=== PATIENT | female | born 1950 | race Caucasian/White ===

== ENCOUNTER 2021-08-10 10:45 | Emergency (ER) | payer MEDICARE, BC ==
[2021-08-10] MEDS ORDERED: Ondansetron 4 MG Tab.DIS PO ONE (10:53)
--- NOTE | 2021-08-10 10:54 | EDM.PDOC ---
ED HPI GENERAL MEDICAL PROBLEM - General Chief Complaint: General Stated Complaint: nausea, vomiting, chills, headache Time Seen by Provider: 08/10/21 10:52 - History of Present Illness INITIAL COMMENTS - FREE TEXT/NARRATIVE: Headache/chills/vomiting this morning. [place] fine last night. Denies other acute changes. not ill. Hx migraine headaches. Has not had one for a long time. No aura. Usually develops vomiting with migraines. - Related Data Allergies Allergy/AdvReac Type Severity Reaction Status Date / Time dexamethasone Allergy Other Verified 08/10/21 10:47 Home Meds: Home Meds Ondansetron [Zofran ODT] 4 mg PO Q6H PRN #10 tab.dis 08/10/21 [Rx] Past Medical History Neurological History: Reports: Migraines ED ROS GENERAL - Review of Systems Review Of Systems: See Below Constitutional: Reports: Chills. Denies: Fever, Weakness, Fatigue, Night Sweats, Diaphoresis, Decreased Appetite HEENT: Reports: No Symptoms Respiratory: Reports: No Symptoms Cardiovascular: Reports: No Symptoms GI/Abdominal: Reports: Nausea, Vomiting. Denies: Abdominal Pain, Diarrhea, Hematemesis, Hematochezia : Reports: No Symptoms Musculoskeletal: Reports: Muscle Pain (with palpation) Skin: Reports: No Symptoms Neurological: Reports: Headache. Denies: Paresthesia, Tingling, Trouble Speaking, Weakness, Change in Speech, Gait Disturbance Psychiatric: Reports: No Symptoms Hematologic/Lymphatic: Reports: No Symptoms Immunologic: Reports: No Symptoms ED EXAM, GENERAL - Physical Exam Exam: See Below Exam Limited By: No Limitations General Appearance: Alert, WD/WN, No Apparent Distress Eye Exam: Bilateral Eye: EOMI, PERRL Ears: Normal External Exam, Normal Canal, Hearing Grossly Normal Nose: No: Nasal Deformity, Nasal Swelling, Nasal Drainage Throat/Mouth: Normal Lips, Normal Oropharynx, Normal Voice, No Airway Compromise Head: Atraumatic, Normocephalic Neck: Normal Inspection, Supple, Non-Tender, Full Range of Motion Respiratory/Chest: No Respiratory Distress, Lungs Clear, Normal Breath Sounds, No Accessory Muscle Use Cardiovascular: Normal Peripheral Pulses, Regular Rate, Rhythm, No Edema, No Murmur GI/Abdominal: Normal Bowel Sounds, Soft, Non-Tender, No Distention (Female) Exam: Deferred Rectal (Female) Exam: Deferred Back Exam: No: CVA Tenderness (L), CVA Tenderness (R), Muscle Spasm, Paraspinal Tenderness, Vertebral Tenderness Extremities: Normal Range of Motion, No Pedal Edema, Normal Capillary Refill, Other (diffuse tenderness muscles limbs) Neurological: Alert, Oriented, CN II-XII Intact, Normal Cognition, Normal Gait, No Motor/Sensory Deficits Psychiatric: Normal Affect, Normal Mood Skin Exam: Warm, Intact, Normal Color Course - Orders/Labs/Meds Orders: Active Orders 24 hr Category Date Time Status Peripheral IV Care [RC] . DIRECTED Care 08/10/21 11:34 Active Abdomen Series w Chest 1V [CR] Stat Exams 08/10/21 10:53 Taken Head wo Cont [CT] Stat Exams 08/10/21 11:40 Taken UA RFX DEIRDRE AND CULT IF INDIC [URIN] Stat Lab 08/10/21 10:53 Ordered Sodium Chloride 0.9% [Saline Flush] Med 08/10/21 11:34 Active 10 ml FLUSH ASDIRECTED PRN Peripheral IV Insertion Adult [OM.PC] Routine Oth 08/10/21 11:34 Ordered Medication Orders Sodium Chloride (Sodium Chloride 0.9% 10 Ml Syringe) 10 ml FLUSH ASDIRECTED PRN PRN Reason: Keep Vein Open Labs: Laboratory Tests 08/10/21 08/10/21 08/10/21 Range/Units 11:14 11:14 11:14 WBC 7.1 (4.0-10.2) K/uL RBC 4.58 (3.77-5.09) M/uL Hgb 13.0 (11.7-15.5) g/dL Hct 39.1 (34.0-46.0) % MCV 85.4 (84.0-98.0) fL MCH 28.4 (28.2-33.3) pg MCHC 33.2 (31.7-36.0) g/dL RDW 13.8 (11.2-14.1) % Plt Count 196 (150-350) K/uL Neut % (Auto) 85.0 H (45.0-80.0) % Lymph % (Auto) 10.4 (10.0-50.0) % Knox % (Auto) 4.5 (2.0-14.0) % Eos % (Auto) 0.0 (0.0-5.0) % Baso % (Auto) 0.1 (0.0-2.0) % Neut # (Auto) 6.04 (1.40-7.00) K/uL Lymph # (Auto) 0.74 (0.50-3.50) K/uL Knox # (Auto) 0.32 (0.00-1.00) K/uL Eos # (Auto) 0.00 (0.00-0.50) K/uL Baso # (Auto) 0.01 (0.00-0.20) K/uL D-Dimer, Quantitative (0-400) ng/mL Sodium 140 (136-145) mmol/L Potassium 3.8 (3.5-5.1) mmol/L Chloride 104 (98-107) mmol/L Carbon Dioxide 23.5 (21.0-32.0) mmol/L Anion Gap 12.5 (7-15) meq/L BUN 16 (7-18) mg/dL Creatinine 0.70 (0.51-1.17) mg/dL Est Cr Clr Drug Dosing TNP Estimated GFR (MDRD) > 60 mL/min Glucose 131 H (70-99) mg/dL Lactic Acid 1.1 (0.4-2.0) mmol/L Calcium 9.1 (8.5-10.1) mg/dL Magnesium 1.7 L (1.8-2.4) mg/dL Total Bilirubin 0.5 (0.2-1.0) mg/dL AST 18 (15-37) U/L ALT 35 (12-78) U/L Alkaline Phosphatase 73 (46-116) IU/L Total Protein 6.5 (6.4-8.2) g/dL Albumin 4.0 (3.4-5.0) g/dL Influenza Type A RNA (NEGATIVE) RSV RNA (INAAT) (NEGATIVE) Influenza Type B RNA (NEGATIVE) SARS-CoV-2 RNA ([place]ONA) (NEGATIVE) 08/10/21 08/10/21 Range/Units 11:14 11:14 WBC (4.0-10.2) K/uL RBC (3.77-5.09) M/uL Hgb (11.7-15.5) g/dL Hct (34.0-46.0) % MCV (84.0-98.0) fL MCH (28.2-33.3) pg MCHC (31.7-36.0) g/dL RDW (11.2-14.1) % Plt Count (150-350) K/uL Neut % (Auto) (45.0-80.0) % Lymph % (Auto) (10.0-50.0) % Knox % (Auto) (2.0-14.0) % Eos % (Auto) (0.0-5.0) % Baso % (Auto) (0.0-2.0) % Neut # (Auto) (1.40-7.00) K/uL Lymph # (Auto) (0.50-3.50) K/uL Knox # (Auto) (0.00-1.00) K/uL Eos # (Auto) (0.00-0.50) K/uL Baso # (Auto) (0.00-0.20) K/uL D-Dimer, Quantitative < 100 (0-400) ng/mL Sodium (136-145) mmol/L Potassium (3.5-5.1) mmol/L Chloride (98-107) mmol/L Carbon Dioxide (21.0-32.0) mmol/L Anion Gap (7-15) meq/L BUN (7-18) mg/dL Creatinine (0.51-1.17) mg/dL Est Cr Clr Drug Dosing Estimated GFR (MDRD) mL/min Glucose (70-99) mg/dL Lactic Acid (0.4-2.0) mmol/L Calcium (8.5-10.1) mg/dL Magnesium (1.8-2.4) mg/dL Total Bilirubin (0.2-1.0) mg/dL AST (15-37) U/L ALT (12-78) U/L Alkaline Phosphatase (46-116) IU/L Total Protein (6.4-8.2) g/dL Albumin (3.4-5.0) g/dL Influenza Type A RNA Negative (NEGATIVE) RSV RNA (INAAT) Negative (NEGATIVE) Influenza Type B RNA Negative (NEGATIVE) SARS-CoV-2 RNA ([place]ONA) Negative (NEGATIVE) Meds: Medications Generic Name Dose Route Start Last Admin Trade Name Freq PRN Reason Stop Dose Admin Sodium Chloride 10 ml 08/10/21 11:34 Sodium Chloride 0.9% 10 Ml Syringe FLUSH ASDIRECTED PRN Keep Vein Open Discontinued Medications Generic Name Dose Route Start Last Admin Trade Name Shawna PRN Reason Stop Dose Admin Fentanyl 50 mcg 08/10/21 13:23 Fentanyl 50 Mcg/Ml Sdv IVPUSH 08/10/21 13:24 ONETIME ONE Sodium Chloride 1,000 mls @ 500 mls/hr 08/10/21 11:46 08/10/21 12:46 Normal Saline IV 08/10/21 13:45 500 mls/hr .BOLUS ONE Administration Magnesium Sulfate/Dextrose 1 100 mls @ 100 mls/hr 08/10/21 12:22 08/10/21 12:46 gm/ Premix IV 08/10/21 13:21 100 mls/hr ONETIME ONE Administration Ketorolac Tromethamine Confirm 08/10/21 11:24 08/10/21 11:34 Ketorolac 15 Mg/Ml Sdv Administered 08/10/21 11:25 Not Given Dose 15 mg .ROUTE .STK-MED ONE Ketorolac Tromethamine 15 mg 08/10/21 11:27 08/10/21 11:28 Ketorolac 15 Mg/Ml Sdv IVPUSH 08/10/21 11:28 15 mg ONETIME ONE Administration Ondansetron HCl 4 mg 08/10/21 10:53 08/10/21 11:25 Ondansetron 4 Mg Tab.Dis PO 08/10/21 10:54 4 mg ONETIME ONE Administration Sumatriptan Succinate 6 mg 08/10/21 11:46 08/10/21 12:45 Sumatriptan 6 Mg/0.5 Ml Sdv SUBCUT 08/10/21 11:47 6 mg ONETIME ONE Administration - Radiology Interpretation Free Text/Narrative:: Abd series/chest showed no acute infiltrates or signs of obstruction - Re-Assessments/Exams Free Text/Narrative Re-Assessment/Exam: 08/10/21 15:02 Labs ordered. Patient given IV fluid/Toradol/Imitrex Negative Covid/RSV/Flu Normal WBC/lactic Chem overall unremarkable but low Mag. Received IV Mag replacement as low mag can contribute to migraines. Patient feeling much better. Still has headache but low grade. Suspect that she may be developing an acute viral illness that triggered today's migraine given hx of chills and muscle aches. OK to go home. Precautions reviewed. To observe for changes. Return to ER as needed for sudden acute problems. Rx for Zofran for PRN. Patient agreeable with plan. Departure - Departure Time of Disposition: 14:13 Disposition: Home, Self-Care 01 Condition: Good Clinical Impression: Hypomagnesemia Migraine Qualifiers: Migraine type: without aura Status migrainosus presence: without status migrainosus Intractability: not intractable Qualified Code(s): G43.009 - Migraine without aura, not intractable, without status migrainosus - Discharge Information *PRESCRIPTION DRUG MONITORING PROGRAM REVIEWED*: Not Applicable *COPY OF PRESCRIPTION DRUG MONITORING REPORT IN PATIENT [place]: Not Applicable Prescriptions: Ondansetron [Zofran ODT] 4 mg PO Q6H PRN #10 tab.dis PRN Reason: Nausea Instructions: Migraine Headache, [id number] Referrals: Tasha Tillman PA [Primary Care Provider] - Forms: ED Department Discharge Additional Instructions: Take it easy over the next 24-48 hours and see if you develop any other symptoms that might help to identify what is going on. As we reviewed, you may be coming down with a viral illness given the body aches you are experiencing today. Your covid/flu/RSV testing was negative. Stay hydrated. Follow up in ER as needed for worsening problems/concerns. Recommend Mag Glycinate 500mg daily. Get Mag level rechecked in one month. - My Orders Last 24 Hours: My Active Orders 08/10/21 10:53 Abdomen Series w Chest 1V [CR] Stat UA RFX DEIRDRE AND CULT IF INDIC [URIN] Stat 08/10/21 11:34 Peripheral IV Care [RC] . DIRECTED Sodium Chloride 0.9% [Saline Flush] 10 ml FLUSH ASDIRECTED PRN Peripheral IV Insertion Adult [OM.PC] Routine 08/10/21 11:40 Head wo Cont [CT] Stat - Assessment/Plan Last 24 Hours: My Active Orders 08/10/21 10:53 Abdomen Series w Chest 1V [CR] Stat UA RFX DEIRDRE AND CULT IF INDIC [URIN] Stat 08/10/21 11:34 Peripheral IV Care [RC] . DIRECTED Sodium Chloride 0.9% [Saline Flush] 10 ml FLUSH ASDIRECTED PRN Peripheral IV Insertion Adult [OM.PC] Routine 08/10/21 11:40 Head wo Cont [CT] Stat
[2021-08-10] MEDS ORDERED: Ketorolac 15 MG/ML SDV ONE (11:24)
[2021-08-10] MEDS ORDERED: Ketorolac 15 MG/ML SDV IVPUSH ONE (11:27)
[2021-08-10] MEDS ORDERED: Sodium Chloride 0.9% 10 ML Syringe FLUSH PRN (11:34)
[2021-08-10 11:42] LABS: ANION GAP 12.5 meq/L (7-15); CHLORIDE,CL 104 mmol/L (98-107); SODIUM,NA 140 mmol/L (136-145)
[2021-08-10] MEDS ORDERED: Sodium Chloride 0.9% 1,000 ML IV ONE (11:46)
[2021-08-10] MEDS ORDERED: SUMAtriptan 6 MG/0.5 ML SDV SUBCUT ONE (11:46)
[2021-08-10 12:01] LABS: CORONAVIRUS COVID-19 NAA NEGATIVE (NEGATIVE); RESPIRATORY SYNCYTIAL VIR NAA NEGATIVE (NEGATIVE)
[2021-08-10] MEDS ORDERED: fentaNYL 50 MCG/ML SDV IVPUSH ONE (13:23)
== END 2021-08-10 14:40 | disposition home or self-care (01) ==
LOC: LL.ED 10:45
DX: G43.009 Migraine without aura, not intractable, without status migrainosus (principal); E83.42 Hypomagnesemia; Z88.8 Allergy status to other drugs, medicaments and biological substances; Z20.822 Contact with and (suspected) exposure to COVID-19
CPT/HCPCS: 0241U; 36415; 70450; 74022; 80053; 83605; 83735; 85025; 85379; 96365; 96372; 96375; 99284; 99284-25; A9270-GY; J1885; J3030; J3475; J7030

== ENCOUNTER 2024-12-16 11:59 | Emergency (ER) | payer MEDICARE ==
[2024-12-16] MEDS: Aspirin 81 MG Tab.Chew PO ONE (12:06)
[2024-12-16] MEDS: Ondansetron 4 MG/2 ML SDV IVPUSH ONE (12:07)
[2024-12-16] MEDS: Sodium Chloride 0.9% 10 ML Syringe FLUSH PRN (12:07)
[2024-12-16 12:08] LABS: BASOPHILS ABSOLUTE AUTO 0.01 K/uL (0.00-0.20); BASOPHILS PERCENT AUTO 0.1 % (0.0-2.0); HEMATOCRIT 41.1 % (34.0-46.0); HEMOGLOBIN 13.6 g/dL (11.7-15.5); IMMATURE GRAN ABSOLUTE AUTO 0.01 10^3/uL (0.00-0.04); IMMATURE GRAN PERCENT AUTO 0.1 % (0.0-0.4); LYMPHOCYTES PERCENT AUTO 14.2 % (10.0-50.0); MEAN CORPUSCULAR HEMOGLOBIN 27.9 pg (28.2-33.3); MEAN CORPUSCULAR HGB CONC 33.1 g/dL (31.7-36.0); MEAN CORPUSCULAR VOLUME 84.2 fL (84.0-98.0); MONOCYTES ABSOLUTE AUTO 0.38 K/uL (0.00-1.00); MONOCYTES PERCENT AUTO 5.4 % (2.0-14.0); NEUTROPHILS ABSOLUTE AUTO 5.65 K/uL (1.40-7.00); NEUTROPHILS PERCENT AUTO 80.2 % (45.0-80.0); PLATELET COUNT,PLT 194 K/uL (150-350); RED BLOOD CELL COUNT 4.88 M/uL (3.77-5.09); RED CELL DISTRIBUTION WIDTH 13.3 % (11.2-14.1); WHITE BLOOD CELL COUNT,WBC 7.1 K/uL (4.0-10.2)
[2024-12-16 12:28] LABS: PROTHROMBIN TIME 10.4 SEC (9.0-11.1); PTT,PARTIAL THROMBOPLSTIN TIME 25.9 SEC (23.8-34.4)
[2024-12-16 12:36] LABS: ANION GAP 9.1 meq/L (7-15); BILIRUBIN TOTAL 0.5 mg/dL (0.2-1.0); CALCIUM 9.1 mg/dL (8.5-10.1); CARBON DIOXIDE,CO2 25.9 mmol/L (21.0-32.0); CREATININE 0.76 mg/dL (0.51-1.17); EST CRCL DRUG DOSING (CG) 50.59 mL/min; MAGNESIUM 1.8 mg/dL (1.8-2.4); POTASSIUM,K 3.7 mmol/L (3.5-5.1); PROTEIN TOTAL,TP 6.6 g/dL (6.4-8.2)
[2024-12-16] MEDS: Lactated Ringers 1,000 ML IV SCH (13:33)
== END 2024-12-16 15:30 | disposition home or self-care (01) ==
LOC: LL.ED 11:59
DX: A08.4 Viral intestinal infection, unspecified (principal); Z88.8 Allergy status to other drugs, medicaments and biological substances
CPT/HCPCS: 36415; 71045; 80053; 83605; 83690; 83735; 83880; 84484; 85025; 85610; 85730; 93005; 96361; 96374; 99285-25; A9270-GY; J2405; J7120